=== PATIENT | male | born 1995 | race Caucasian/White ===

== ENCOUNTER 2025-05-04 07:59 | Outpatient (OUT) | payer MEDICAID, SELFPAY ==
--- OUTSIDE RECORDS SUMMARY | 2025-05-04 08:08 | XMS_ITS | Clinical Summary ---
Author Organization [facility] Address [address] [place] [address] Phone Care Team Providers Care Bilingual Operator Name Role Phone Unavailable Primary Care Provider Unavailabl e Allergies No known active allergies Social History Tobacco UseTypesPacks/DayYears UsedDateSmoking Tobacco: Never AssessedSex and Gender InformationValueDate RecordedSex Assigned at BirthNot on fileLegal Sex Male05/16/2022 7:23 PM ESTGender IdentityNot on fileSexual OrientationNot on file Last Filed Vital Signs Vital SignReadingTime TakenCommentsBlood Geixwvxc885/8907/06/2024 9:00 PM EST Rebfd0000/16/2025 9:00 PM XHOAgwzklvijby92.5 ??C (97.7 ??F)07/06/2024 3:14 PM ESTRespiratory Klwd519807/06/2024 9:00 PM ESTOxygen Rwuqqugrtu28%07/06/2024 9:00 PM ESTInhaled Oxygen Concentration--Qzlpzb06.2 kg (190 lb)07/06/2024 3:18 PM EST Iczhik291.7 cm (5' 8 )07/06/2024 3:18 PM ESTBody Mass Index28.8907/06/2024 3:18 PM EST Plan of Treatment Health MaintenanceDue DateLast DoneCommentsHIV Quxazhouq1994Lipid Panel 1994Yearly Adult Bpsfyhkv1994Hepatitis C Sigcrsaip37/17/2012IPV Vaccines (2 of 3 - Adult catch-up series)Hepatitis B Vaccines (3 of 3 - Hep B Twinrix 3-dose series), 02/05/2012 Hepatitis A Vaccines (2 of 2 - 2-dose series), 02/05/2012HPV Vaccines (1 - 3-dose standard series)2021TaP/Tdap/Td Vaccines (3 - Td or Tdap), 07/21/2010Influenza Vaccine (#1) COVID-19 Vaccine ( - season)2025Zoster Vaccines (1 of 2) , 02/05/2012Meningococcal VbmusyvKzuswclso02/17/2012MMR LvscrtgzUyaynoman62/18/2012, 02/05/2012HIB VaccinesAged OutNo longer eligible based on patient's age to complete this topicPneumococcal Vaccine: Pediatrics and At-Risk Adult PatientsAged OutNo longer eligible based on patient's age to complete this topicRotavirus VaccinesAged OutNo longer eligible based on patient's age to complete this topic
--- OUTSIDE RECORDS SUMMARY | 2025-05-04 08:08 | XMS_ITS | Clinical Summary ---
Author Organization [facility] Address [address] [id number] Care Team Providers Care Mainspring Former [facility] Name Role Phone Unavailable Primary Care Provider Unavailabl e Source Comments The following information is NOT included in Care Everywhere downloads:Psychiatric notes, ECG results, Cardiac Rehab notes, Pulmonary Function notes, data from SmartForms (includes but not limited toPregnancy data,audiograms, eye exams, pre-surgical evaluation notes, well-child exam data).[facility] Active Problems ProblemNoted DateDiagnosed DateOpioid use disorder, severe, on maintenance iyglsnr4210/24/2023 Encounters DateTypeDepartmentCare UxznGtlxthfezyb16/20/2025ommunity Orders [place] [id number] Leonidas Barrientos PA-C from Last 3 Months Immunizations ImmunizationAdministration DatesNext DueAdenovirus, types 4 and 7 (RXN=635) 02/05/2012Hep A-Hep B (adult) (SEI=275)04/07/2012,02/05/2012Influenza, intranasal, live, trivalent (LAIV3) (PAM=443)04/11/2012MMR, Azopwma-Neusq-Czuhgrj (CVX=03)04/07/2012,02/05/2012Meningococcal conjugate (MCV4,Men-ACWY), Menactra (MCV4P) (AVL=842)02/05/2012Polio, inactivated (IPV) (CVX=10)02/05/2012Td (adult), 5 Lf tetanus toxoid, preservative free, adsorbed (LDN=807)07/21/2010Tdap (ORG=323)02/05/2012Varicella (Chickenpox) (CVX=21) 04/07/2012,02/05/2012 Social History Tobacco UseTypesPacks/DayYears UsedDateSmoking Tobacco: Never Assessed Humiliation, Afraid, Rape, and Kick questionnaireAnswerDate RecordedWithin the last year, have you been afraid of your partner or ex-partner?No09/23/2023Within the last year, have you been humiliated or emotionally abused in other ways by your partner or ex-partner?No09/23/2023Within the last year, have you been kicked, hit, slapped, or otherwise physically hurt by your partner or ex-partner?No09/23/2023Within the last year, have you been raped or forced to have any kind of sexual activity by your partner or ex-partner?No09/23/2023 Social Connection and Isolation Panel [NHANES]AnswerDate RecordedIn a typical week, how many times do you talk on the phone with family, friends, or neighbors?Twice a week09/23/2023How often do you get together with friends or relatives?Once a week09/23/2023How often do you attend roman catholic or mu-ism services?Never09/23/2023o you belong to any clubs or organizations such as roman catholic groups, unions, fraternal or athletic groups, or school groups?Yes 09/23/2023How often do you attend meetings of the clubs or organizations you belong to?1 to 4 times per year09/23/2023re you , , , , never , or living with a partner?Living with xciigdh3509/23/2023 Overall Financial Resource Strain (CARDIA)AnswerDate RecordedHow hard is it for you to pay for the very basics like food, housing, medical care, and heating? Somewhat hard09/23/2023[facility] [place] [facility] - Occupational Stress QuestionnaireAnswerDate RecordedDo you feel stress - tense, restless, nervous, or anxious, or unable to sleep at night because yourmind is troubled all the time - these days?Only a dojqte5709/23/2023Exercise Vital SignAnswerDate RecordedOn average, how many days per week do you engage in moderate to strenuous exercise (like a brisk walk)?4 days09/23/2023On average, how many minutes do you engage in exercise at this level?90 min09/23/2023Hunger Vital SignAnswerDate RecordedWithin the past 12 months, you worried that your food would run out before you got the money to buymore.Never true09/23/2023Within the past 12 months, the food you bought just didn't last and you didn't have money to get more.Never true09/23/2023RAPARE - TransportationAnswerDate RecordedIn the past 12 months, has lack of transportation kept you from medical appointments or from getting medications?No09/23/2023In the past 12 months, has lack of transportation kept you from meetings, work, or from getting things needed for daily living?No09/23/2023Housing Stability Vital SignAnswerDate RecordedIn the last 12 months, was there a time when you were not able to pay the mortgage or rent on time?No09/23/2023In the last 12 months, how many places have you lived?In the last 12 months, was there a time when you did not have a steady place to sleep or slept in ashelter (including now)?No 09/23/2023EducationAnswerDate RecordedWhat is the highest level of school you have completed or the highest degree you have received?Some college, no degree 09/23/2023Sex and Gender InformationValueDate RecordedSex Assigned at BirthNot on fileLegal KmoIojl8802/02/2022 8:56 AM EDTGender IdentityNot on fileSexual OrientationNot on file Plan of Treatment Health MaintenanceDue DateLast DoneCommentsHIV Test2009Hepatitis C Zintyetu61/17/2012Hepatitis A (HAV) Vaccine (3 of 3 - Hep A Twinrix risk 3-dose series), 02/05/2012Hepatitis B (HBV) Vaccine (3 of 3 - Hep B Twinrix 3-dose series), 02/05/2012HPV Vaccine (optional start 27-45 years)2021Tetanus (Td or Tdap) Rapzmif20, 07/21/2010COVID-19 Vaccine (2024- season)2025Influenza Vaccine (#1) Shingles (RZV) Vaccine (1 of 2)02/05/2044Tdap Booster Lbtrznhmq47/17/2012Pneumococcal Vaccine(s)Aged OutNo longer eligible based on patient's age to complete this topic Insurance * Guarantor: Lucía Brian TypeRelation to PatientDate of BirthPhone Billing AddressPersonal/MqcsntOson1995 [facility] [place] [address] * Guarantor: Lucía Brian TypeRelation to PatientDate of BirthPhone Billing OhqfpjlCxsbdqblulWgaa1995 [facility] [place] [address]
[2025-05-04 09:25] LABS: Iron 17.0 ug/dL (65.0-175.0); Percent Iron Saturation 4.1 %; Total Iron Binding Capacity 410.0 ug/dL (250.0-450.0)
[2025-05-04 11:44] LABS: Ferritin 13.0 ng/mL (26.0-388.0); Folate 12.70 ng/mL (8.60-58.90)
[2025-05-05 03:07] LABS: Vitamin B12 618 pg/mL (232-1245)
== END 2025-05-04 08:00 | disposition home or self-care (01) ==
LOC: LAB 08:04
PROVIDERS: PCP Nurse Practitioner Primary Care; Visit Provider Nurse Practitioner Primary Care
DX: Z01.812 Encounter for preprocedural laboratory examination (principal); F10.20 Alcohol dependence, uncomplicated
CPT/HCPCS: 36415; 82607; 82728; 82746; 83540; 83550